=== PATIENT | male | born 1960 | race American Indian/Alaskan Native ===

== ENCOUNTER 2016-08-08 09:49 | Emergency (ER) | payer SELFPAY ==
[2016-08-08] MEDS ORDERED: CATAPRES PO ONE (12:20)
[2016-08-08] MEDS ORDERED: ZESTRIL PO ONE (12:20)
--- NOTE | 2016-08-08 12:20 | Emergency Department Report ---
ED Extremity Problem HPI - General Chief complaint: Extremity Injury, Lower Stated complaint: LT FOOT/ANKLE NUMBNESS Time Seen by Provider: 08/08/16 12:05 Source: patient Mode of arrival: Ambulatory Limitations: No Limitations - History of Present Illness Initial comments: Patient here complaining in of pain to both feet. He complaining the numbness tingling on and off for a couple weeks. He is a diabetic and his blood sugar is 145 in triage area. He states he usually goes away with sitting down but has been noncompliant with his medication due to funding. Denies any chest pain or shortness of breath. Patient blood pressure also elevated at 184/112. Patient denies any headache, shortness of breath or chest pain. Denies any dizziness, nausea. He is essentially asymptomatic with elevated blood pressure. Patient is a diabetic and is noncompliant with his diabetic medication he said he continued days when he takes his metformin and he is requesting a refill on metformin. He also takes lisinopril and 70s been out of his lisinopril and is requesting refill. She says he does not have a primary care physician. Describe pain as tingling. Denies any history of heart disease or lung disease. MD Complaint: extremity pain Onset/Timin -: week(s) Location: bilateral lower extremity (both feet) History of Same: Yes -: No arthralgia, No fever, No associated dyspnea, No associated chest pain Radiation: none Severity scale (0 -10): 0 Quality: other (Tingling) Consistency: intermittent Improves with: rest Worsens with: weight bearing, walking Associated Symptoms: denies: denies other symptoms, chest pain, shortness of breath, fever, myalgias, arthralgias, rash - Related Data Previous Rx's Medication Instructions Recorded Last Taken Type Lisinopril [Zestril TAB] 5 mg PO QDAY #30 tablet 08/08/16 Unknown Rx Metformin HCl [Glucophage] 500 mg PO BID #60 tablet 08/08/16 Unknown Rx traMADol [Ultram] 50 mg PO Q6HR PRN #20 tablet 08/08/16 Unknown Rx Allergies Allergy/AdvReac Type Severity Reaction Status Date / Time No Known Allergies Allergy Unverified 08/08/16 10:12 ED Review of Systems ROS: Stated complaint: LT FOOT/ANKLE NUMBNESS Other details as noted in HPI Comment: All other systems reviewed and negative Constitutional: denies: chills, fever Respiratory: no symptoms reported Cardiovascular: denies: chest pain, palpitations, edema, syncope Gastrointestinal: denies: abdominal pain, nausea, vomiting, hematemesis, melena , hematochezia Musculoskeletal: denies: back pain, joint swelling, arthralgia, myalgia Skin: denies: rash Neurological: numbness, paresthesias. denies: headache, confusion, abnormal gait, vertigo ED Past Medical Hx - Past Medical History Previous Medical History?: Yes Hx Hypertension: Yes Hx Diabetes: Yes - Surgical History Past Surgical History?: Yes Additional Surgical History: BILATERAL ARTIFICIAL EYE LENS. RIGHT KNEE - Family History Family history: diabetes, hypertension - Social History Smoking Status: Current Every Day Smoker Substance Use Type: Alcohol - Medications Home Medications: Home Medications Medication Instructions Recorded Confirmed Last Taken Type Lisinopril [Zestril TAB] 5 mg PO QDAY #30 tablet 08/08/16 Unknown Rx Metformin HCl [Glucophage] 500 mg PO BID #60 tablet 08/08/16 Unknown Rx traMADol [Ultram] 50 mg PO Q6HR PRN #20 tablet 08/08/16 Unknown Rx ED Physical Exam - General Limitations: No Limitations General appearance: alert, in no apparent distress - Head Head exam: Present: atraumatic, normocephalic, normal inspection - Expanded Head Exam Expanded Head exam: Absent: laceration, abrasion, contusion, hematoma, racoon eyes, hanson's sign, general tenderness, tenderness of temporal artery, CSF rhinorrhea , CSF otorrhea - Eye Eye exam: Present: normal appearance - Neck Neck exam: Present: normal inspection, full ROM. Absent: tenderness, meningismus, lymphadenopathy - Respiratory Respiratory exam: Present: normal lung sounds bilaterally. Absent: respiratory distress - Cardiovascular Cardiovascular Exam: Present: regular rate, normal rhythm, normal heart sounds - GI/Abdominal GI/Abdominal exam: Present: soft, normal bowel sounds. Absent: distended, tenderness, guarding, rebound, rigid - Extremities Exam Extremities exam: Present: normal inspection, full ROM, normal capillary refill , other (patient with no neurovascular compromise. Normal sensation. Pedal pulses are 2+. Peripheral refill less than 3 seconds. No clubbing cyanosis or edema.). Absent: tenderness, pedal edema, joint swelling, calf tenderness - Back Exam Back exam: Present: normal inspection, full ROM - Neurological Exam Neurological exam: Present: alert, oriented X3, normal gait, reflexes normal. Absent: motor sensory deficit - Psychiatric Psychiatric exam: Present: normal affect, normal mood - Skin Skin exam: Present: warm, dry, intact, normal color. Absent: rash ED Course Vital Signs 08/08/16 08/08/16 08/08/16 10:05 12:18 12:43 Temperature 97.8 F 98.0 F Pulse Rate 100 H 85 85 Respiratory 20 20 Rate Blood Pressure 184/112 219/138 Blood Pressure 205/110 [Left] O2 Sat by Pulse 97 100 Oximetry 08/08/16 08/08/16 08/08/16 12:44 13:42 14:00 Temperature Pulse Rate 85 90 Respiratory 18 Rate Blood Pressure 219/138 Blood Pressure 173/106 150/80 [Left] O2 Sat by Pulse 100 Oximetry - Reevaluation(s) Reevaluation #1: 08/08/16 15:03 Patient given clonidine 0.2 mg and lisinopril 5 mg in emergency room her blood pressure 150/80 at present. ED Medical Decision Making - Medical Decision Making ED course: Patient here for paresthesias to include numbness and tingling to his feet. He is a diabetic and has not been able to afford his medication. He is also elevated blood pressure. Patient takes lisinopril and metformin at home and is requesting a refill. She was given clonidine 0.2 mg lisinopril 5 mg in emergency room and blood pressure is now down to 150/80. He is asymptomatic with elevated blood pressure. He is a smoker and smoking cessation encouraged. Patient discharged home to follow-up with [facility] and/or [place] [facility] to manage chronic medical problem. Patient given prescription for metformin, lisinopril and Ultram. Critical care attestation.: If time is entered above; I have spent that time in minutes in the direct care of this critically ill patient, excluding procedure time. ED Disposition Clinical Impression: Noncompliance with medication regimen, Paresthesia of left lower extremity, Encounter for smoking cessation counseling Hypertension Qualifiers: Hypertension type: essential hypertension Qualified Code(s): I10 - Essential ( primary) hypertension Disposition: DISCHARGED TO HOME OR SELFCARE Is pt being admited?: No Does the pt Need Aspirin: No Condition: Stable Instructions: Hypertension (ED), Paresthesia (ED), Diabetic Neuropathy (ED), Diabetes Mellitus Type 2 in Adults (ED), How to Stop Smoking (ED) Additional Instructions: Follow-up with clinic to manage chronic medical problems. Please stop smoking Prescriptions: Lisinopril [Zestril TAB] 5 mg PO QDAY #30 tablet Metformin HCl [Glucophage] 500 mg PO BID #60 tablet traMADol [Ultram] 50 mg PO Q6HR PRN #20 tablet PRN Reason: Pain Referrals: [facility] [Outside] - 2-3 Days [facility] [Outside] - 2-3 Days
[2016-08-08 14:01] VITALS: BP 150/80
== END 2016-08-08 15:34 | disposition home or self-care (01) ==
LOC: ED 09:49
DX: R20.8 Other disturbances of skin sensation (principal); I10 Essential (primary) hypertension; E11.9 Type 2 diabetes mellitus without complications; F17.200 Nicotine dependence, unspecified, uncomplicated; Z91.14 Patient's other noncompliance with medication regimen
CPT/HCPCS: 82962; 99283

== ENCOUNTER 2016-11-10 07:18 | Emergency (ER) | payer SELFPAY ==
[2016-11-10 08:47] VITALS: BP 176/117
[2016-11-10 09:16] LABS: Basophils % (Auto) 1.4 % (0.0-1.8); Eosinophils % (Auto) 2.3 % (0.0-4.3); Hematocrit 49.5 % (35.5-45.6); Hemoglobin 16.9 gm/dl (11.8-15.2); Mean Corpuscular HGB Conc 34 % (32-34); Mean Corpuscular Hemoglobin 34 pg (28-32); Mean Corpuscular Volume 100 fl (84-94); Platelet Count 255 K/mm3 (140-440); Red Blood Count 4.96 M/mm3 (3.65-5.03); Red Cell Distribution Width 12.9 % (13.2-15.2); White Blood Count 11.8 K/mm3 (4.5-11.0)
[2016-11-10 09:25] LABS: Anion Gap 19 mmol/L; Blood Urea Nitrogen 11 mg/dL (9-20); Calcium 9.7 mg/dL (8.4-10.2); Carbon Dioxide 25 mmol/L (22-30); Chloride 91.8 mmol/L (98-107); Glucose 192 mg/dL (75-100); Potassium 5.3 mmol/L (3.6-5.0); Sodium 130 mmol/L (137-145)
--- NOTE | 2016-11-10 10:34 | XRay Report ---
Chest 2 views: History: Shortness of breath. Findings: Normal cardiomediastinal silhouette. Trachea is midline. No consolidation, pneumothorax or pleural effusion. Impression: No acute cardiopulmonary findings.
--- NOTE | 2016-11-10 12:52 | Emergency Department Report ---
- General Chief Complaint: Upper Respiratory Infection Stated Complaint: FLU SYMPTOMS Time Seen by Provider: 11/10/16 12:42 Source: patient Mode of arrival: Ambulatory Limitations: No Limitations - History of Present Illness Initial Comments: 56-year-old male here with cough and postnasal drip. Patient states he's had these symptoms for several days and is worse when he is in a cold environment. No fevers no chills no nausea no vomiting. He has no chest pain or no shortness of breath. He is a heavy smoker. MD Complaint: fever, cough, sore throat, rhinorrhea, nasal congestion -: days(s) Severity: mild Consistency: constant Improves With: nothing Worsens With: other (cold exposure) - Related Data Previous Rx's Medication Instructions Recorded Last Taken Type Lisinopril [Zestril TAB] 5 mg PO QDAY #30 tablet 08/08/16 Unknown Rx Metformin HCl [Glucophage] 500 mg PO BID #60 tablet 08/08/16 Unknown Rx traMADol [Ultram] 50 mg PO Q6HR PRN #20 tablet 08/08/16 Unknown Rx Cetirizine HCl [ZyrTEC] 10 mg PO DAILY #30 capsule 11/10/16 Unknown Rx Ibuprofen [Motrin 600 MG tab] 600 mg PO Q8H PRN #30 tablet 11/10/16 Unknown Rx guaiFENesin/CODEINE [Robitussin AC] 10 ml PO Q6HR PRN #240 oral.liqd 11/10/16 Unknown Rx Allergies Allergy/AdvReac Type Severity Reaction Status Date / Time No Known Allergies Allergy Unverified 08/08/16 10:12 ED Review of Systems ROS: Stated complaint: FLU SYMPTOMS Other details as noted in HPI Constitutional: denies: chills, fever Eyes: denies: eye pain, eye discharge, vision change ENT: throat pain, congestion. denies: ear pain Respiratory: cough. denies: orthopnea, shortness of breath, SOB with exertion, SOB at rest, stridor, wheezing Cardiovascular: denies: chest pain, palpitations Endocrine: no symptoms reported Gastrointestinal: denies: abdominal pain, nausea, diarrhea Genitourinary: denies: urgency, dysuria Musculoskeletal: denies: back pain, joint swelling, arthralgia Skin: denies: rash, lesions Neurological: denies: headache, weakness, paresthesias Psychiatric: denies: anxiety, depression Hematological/Lymphatic: denies: easy bleeding, easy bruising ED Past Medical Hx - Past Medical History Hx Hypertension: Yes Hx Diabetes: Yes - Surgical History Additional Surgical History: BILATERAL ARTIFICIAL EYE LENS. RIGHT KNEE - Social History Smoking Status: Current Every Day Smoker Substance Use Type: Alcohol - Medications Home Medications: Home Medications Medication Instructions Recorded Confirmed Last Taken Type Lisinopril [Zestril TAB] 5 mg PO QDAY #30 tablet 08/08/16 Unknown Rx Metformin HCl [Glucophage] 500 mg PO BID #60 tablet 08/08/16 Unknown Rx traMADol [Ultram] 50 mg PO Q6HR PRN #20 tablet 08/08/16 Unknown Rx Cetirizine HCl [ZyrTEC] 10 mg PO DAILY #30 capsule 11/10/16 Unknown Rx Ibuprofen [Motrin 600 MG tab] 600 mg PO Q8H PRN #30 tablet 11/10/16 Unknown Rx guaiFENesin/CODEINE [Robitussin AC] 10 ml PO Q6HR PRN #240 oral.liqd 11/10/16 Unknown Rx ED Physical Exam - General Limitations: No Limitations General appearance: alert, in no apparent distress - Head Head exam: Present: atraumatic, normocephalic - Eye Eye exam: Present: normal appearance - ENT ENT exam: Present: normal orophraynx, mucous membranes moist - Neck Neck exam: Present: normal inspection - Respiratory Respiratory exam: Present: normal lung sounds bilaterally. Absent: respiratory distress, wheezes, rales - Cardiovascular Cardiovascular Exam: Present: regular rate, normal rhythm. Absent: systolic murmur, diastolic murmur, rubs, gallop - GI/Abdominal GI/Abdominal exam: Present: soft, normal bowel sounds - Rectal Rectal exam: Present: deferred - Extremities Exam Extremities exam: Present: normal inspection - Back Exam Back exam: Present: normal inspection - Neurological Exam Neurological exam: Present: alert, oriented X3 - Psychiatric Psychiatric exam: Present: normal affect, normal mood - Skin Skin exam: Present: warm, dry, intact, normal color. Absent: rash ED Course Vital Signs 11/10/16 08:41 Temperature 98.0 F Pulse Rate 86 Respiratory 16 Rate Blood Pressure 176/117 O2 Sat by Pulse 100 Oximetry ED Medical Decision Making - Lab Data Result diagrams: 11/10/16 08:53 11/10/16 08:53 Laboratory Results - last 24 hr 11/10/16 11/10/16 08:53 08:53 WBC 11.8 H RBC 4.96 Hgb 16.9 H Hct 49.5 H MCV 100 H MCH 34 H MCHC 34 RDW 12.9 L Plt Count 255 Lymph % (Auto) 11.6 L [place] % (Auto) 8.1 H Eos % (Auto) 2.3 Baso % (Auto) 1.4 Lymph # 1.4 [place] # 0.9 H Eos # 0.3 Baso # 0.2 H Seg Neutrophils % 76.6 H Seg Neutrophils # 9.0 H Sodium 130 L Potassium 5.3 H Chloride 91.8 L Carbon Dioxide 25 Anion Gap 19 BUN 11 Creatinine 1.1 Estimated GFR > 60 BUN/Creatinine Ratio 10.00 Glucose 192 H Calcium 9.7 Troponin T < 0.010 Vital Signs 11/10/16 08:41 Temperature 98.0 F Pulse Rate 86 Respiratory 16 Rate Blood Pressure 176/117 O2 Sat by Pulse 100 Oximetry - EKG Data -: EKG Interpreted by Me EKG shows normal: sinus rhythm (82), axis, intervals, QRS complexes, ST-T waves Rate: normal - Radiology Data Radiology results: report reviewed, image reviewed - Medical Decision Making 56-year-old male here with complaint of runny nose sore throat and cough. He likely has a URI. He has a slightly elevated white blood cell count but his chest x-ray and clinical exam are otherwise unremarkable he does not have any sinus tenderness. I plan to treat him as a viral URI and we'll discharge him home. Critical care attestation.: If time is entered above; I have spent that time in minutes in the direct care of this critically ill patient, excluding procedure time. ED Disposition Clinical Impression: Viral URI Disposition: DC-01 TO HOME OR SELFCARE Is pt being admited?: No Condition: Stable Instructions: Viral Syndrome (ED) Prescriptions: Cetirizine HCl [ZyrTEC] 10 mg PO DAILY #30 capsule guaiFENesin/CODEINE [Robitussin AC] 10 ml PO Q6HR PRN #240 oral.liqd PRN Reason: Cough Ibuprofen [Motrin 600 MG tab] 600 mg PO Q8H PRN #30 tablet PRN Reason: Pain Referrals: PRIMARY CARE, [Primary Care Provider] - 3-5 Days
== END 2016-11-10 13:18 | disposition home or self-care (01) ==
LOC: ED 07:18
DX: J06.9 Acute upper respiratory infection, unspecified (principal); I10 Essential (primary) hypertension; E11.9 Type 2 diabetes mellitus without complications; F17.200 Nicotine dependence, unspecified, uncomplicated
CPT/HCPCS: 36415; 71020; 80048; 84484; 85025; 93005; 93010

== ENCOUNTER 2017-10-30 15:38 | Emergency (ER) | payer SELFPAY ==
[2017-10-30 16:02] VITALS: BP 166/118
== END 2017-10-30 16:20 | disposition left against medical advice (07) ==
LOC: ED 15:38
DX: R68.89 Other general symptoms and signs (principal); R73.9 Hyperglycemia, unspecified; Z53.21 Procedure and treatment not carried out due to patient leaving prior to being seen by health care provider
CPT/HCPCS: 82962; 93005; 93010